=== PATIENT | female | born 1965 | race Caucasian/White ===

== ENCOUNTER → 2016-11-19 | Outpatient (CLI) | payer BC ==
--- NOTE | 2016-11-21 09:38 | MM ---
Reason for exam: screening (asymptomatic). Last mammogram was performed 1 year and 2 months ago. History: Patient is postmenopausal, has history of breast cancer at age 43, and had previous chest radiation therapy at age 43. Malignant right breast needle localzation of the right breast, May 10, 2009. Malignant right mammotome panel of the right breast, April 24, 2009. Chemotherapy, 2009. Radiation therapy of the right breast, 2009. Took hormonal contraceptives for 10 years. Taking tamoxifen beginning at age 44. Physical Findings: A clinical breast exam by your physician is recommended on an annual basis and results should be correlated with mammographic findings. MG 3D Screening Mammo W/Cad Bilateral CC and MLO view(s) were taken. Prior study comparison: September 28, 2015, bilateral MG 3d diag mammo w/cad [facility]. September 22, 2014, bilateral MG diagnostic mammo w CAD [facility]. The breast tissue is heterogeneously dense. This may lower the sensitivity of mammography. Stable post surgical and post therapy changes in the right breast with scar. Asymmetric density subareolar right breast does not completely disperse on tomosynthesis images but has no clear correlate on MLO view. ASSESSMENT: Incomplete: need additional imaging evaluation, BI-RAD 0 RECOMMENDATION: Special view mammogram of the right breast. If lesion persists on supplemental views, image directed ultrasound is recommended. [facility] will attempt to contact patient to return for supplemental views and ultrasound if indicated.
== END | disposition home or self-care (01) ==
LOC: RADMAMWWP 12:22
PROVIDERS: ATTEND Surgery
DX: Z12.31 Encounter for screening mammogram for malignant neoplasm of breast (principal)
CPT/HCPCS: 77063; G0202

== ENCOUNTER → 2016-11-27 | Outpatient (CLI) | payer BC ==
--- NOTE | 2016-11-27 09:40 | MM ---
Reason for exam: additional evaluation requested from abnormal screening. Last mammogram was performed less than 1 month ago. History: Patient is postmenopausal, has history of breast cancer at age 43, and had previous chest radiation therapy at age 43. Malignant right breast needle localzation of the right breast, May 10, 2009. Malignant right mammotome panel of the right breast, April 24, 2009. Chemotherapy, 2009. Radiation therapy of the right breast, 2009. Took hormonal contraceptives for 10 years. Took tamoxifen for 5 years beginning at age 44. Physical Findings: Nurse did not find any significant physical abnormalities on exam. MG 3D Work Up W/Cad RT LM and CC view(s) were taken of the right breast. Prior study comparison: November 19, 2016, bilateral MG 3d screening mammo w/cad. September 28, 2015, bilateral MG 3d diag mammo w/cad [facility]. The breast tissue is heterogeneously dense. This may lower the sensitivity of mammography. No distinct lesion persists on additional images. These results were verbally communicated with the patient and result sheet given to the patient on 11/27/16. ASSESSMENT: Benign, BI-RAD 2 RECOMMENDATION: Follow-up diagnostic mammogram of both breasts in 1 year.
== END | disposition home or self-care (01) ==
LOC: RADMAMWWP 08:47
PROVIDERS: ATTEND Surgery
DX: R92.8 Other abnormal and inconclusive findings on diagnostic imaging of breast (principal)
CPT/HCPCS: G0206; G0279

== ENCOUNTER → 2019-03-15 | Outpatient (CLI) | payer BC ==
--- NOTE | 2019-03-15 09:45 | MM ---
Reason for exam: additional evaluation requested from prior study. Last mammogram was performed 1 year and 2 months ago. History: Patient is postmenopausal, has history of breast cancer at age 43, and had previous chest radiation therapy at age 43. Malignant right breast needle localzation of the right breast, May 10, 2009. Malignant right mammotome panel of the right breast, April 24, 2009. Chemotherapy, 2009. Radiation therapy of the right breast, 2009. Took hormonal contraceptives for 10 years. Took tamoxifen for 5 years beginning at age 44. Physical Findings: Nurse did not find any significant physical abnormalities on exam. MG 3D Diag Mammo W/Cad [facility] Bilateral CC and MLO view(s) were taken. Prior study comparison: January 22, 2018, bilateral MG 3d diag mammo w/cad [facility]. November 27, 2016, right breast MG 3d work up w/cad RT. The breast tissue is heterogeneously dense. This may lower the sensitivity of mammography. No suspicious abnormality. Post therapy change on the right. No significant new findings when compared with previous films. These results were verbally communicated with the patient and result sheet given to the patient on 03/15/19. ASSESSMENT: Benign, BI-RAD 2 RECOMMENDATION: Routine screening mammogram of both breasts in 1 year.
== END | disposition home or self-care (01) ==
LOC: RADMAMWWP 08:22
PROVIDERS: ATTEND Family Medicine
DX: Z08 Encounter for follow-up examination after completed treatment for malignant neoplasm (principal); Z85.3 Personal history of malignant neoplasm of breast
CPT/HCPCS: 77062; 77066

== ENCOUNTER → 2020-04-13 | Outpatient (CLI) | payer BC ==
--- NOTE | 2020-04-14 13:57 | MM ---
Reason for exam: screening (asymptomatic). Last mammogram was performed 1 year and 1 month ago. History: Patient is postmenopausal, has history of breast cancer at age 43, and had previous chest radiation therapy at age 43. Malignant right breast needle localzation of the right breast, May 10, 2009. Malignant right mammotome panel of the right breast, April 24, 2009. Chemotherapy, 2009. Radiation therapy of the right breast, 2009. Took hormonal contraceptives for 10 years. Took tamoxifen for 5 years beginning at age 44. Physical Findings: A clinical breast exam by your physician is recommended on an annual basis and results should be correlated with mammographic findings. MG 3D Screening Mammo W/Cad Bilateral CC and MLO view(s) were taken. Prior study comparison: March 15, 2019, bilateral MG 3d diag mammo w/cad [facility]. January 22, 2018, bilateral MG 3d diag mammo w/cad [facility]. The breast tissue is heterogeneously dense. This may lower the sensitivity of mammography. Stable post operative changes right breast. No significant changes when compared with prior studies. ASSESSMENT: Benign, BI-RAD 2 RECOMMENDATION: Routine screening mammogram of both breasts in 1 year.
== END | disposition home or self-care (01) ==
LOC: RADMAMWWP 14:23
PROVIDERS: ATTEND Obstetrics & Gynecology
DX: Z12.31 Encounter for screening mammogram for malignant neoplasm of breast (principal); Z85.3 Personal history of malignant neoplasm of breast
CPT/HCPCS: 77063; 77067

== ENCOUNTER → 2021-10-08 | Outpatient (CLI) | payer BC ==
--- NOTE | 2021-10-09 08:28 | MM ---
Reason for Exam: Screening (asymptomatic). Last mammogram was performed 1 year(s) and 6 month(s) ago. Patient History: Menarche at age 14. First Full-Term at age 27. Postmenopausal. Breast cancer, age 43. Previous chest radiation therapy at age 43. Patient used Hormonal Contraceptives for 10 years. Tamoxifen for 5 years from age 44 until age 49. 05/10/2009, Malignant Excisional Biopsy on the right side. 04/24/2009, Malignant Core Biopsy on the right side. 2009, Radiation Therapy on the right side. 2009, Chemotherapy. 2009, Radiation Therapy on the right side. Prior Study Comparison: 01/22/2018 Bilateral Diagnostic Mammogram, [facility]. 03/15/2019 Bilateral Diagnostic Mammogram, [facility]. 04/13/2020 Bilateral Screening Mammogram, [facility]. Tissue Density: The breast tissue is heterogeneously dense. This may lower the sensitivity of mammography. Findings: Analyzed By CAD. Posttreatment changes to the right breast. Left breast intramammary lymph node. There is no suspicious group of microcalcifications or new suspicious mass in either breast. Overall Assessment: Benign, BI-RAD 2 Management: Screening Mammogram of both breasts in 1 year. A clinical breast exam by your physician is recommended on an annual basis and results should be correlated with mammographic findings. Electronically signed and approved by: Andrez Gay DO
== END | disposition home or self-care (01) ==
LOC: RADMAMWWP 12:39
PROVIDERS: ATTEND Family Medicine
DX: Z12.31 Encounter for screening mammogram for malignant neoplasm of breast (principal); Z78.0 Asymptomatic menopausal state
CPT/HCPCS: 77063; 77067

== ENCOUNTER → 2022-10-22 | Outpatient (CLI) | payer BC ==
--- NOTE | 2022-10-22 09:02 | MM ---
Reason for Exam: Clinical finding. Last screening mammogram was performed 12 month(s) ago. Indicated Problems: Lump or thickening of the right side for 2 Week(s). Patient History: Menarche at age 14. First Full-Term at age 27. Postmenopausal. Patient has history of breast feeding. Breast cancer, right, age 43. Previous chest radiation therapy at age 43. Patient used Hormonal Contraceptives for 10 years. Tamoxifen for 5 years from age 44 until age 49. 05/10/2009, Malignant Excisional Biopsy on the right side. 04/24/2009, Malignant Core Biopsy on the right side. 2009, Radiation Therapy on the right side. 2009, Chemotherapy. 2009, Radiation Therapy on the right side. Mother had ovarian cancer under age 50. Prior Study Comparison: 02/12/2010 Bilateral Diagnostic Mammogram, [facility]. 09/22/2014 Bilateral Diagnostic Mammogram, [facility]. 09/28/2015 Bilateral Diagnostic Mammogram, [facility]. 11/19/2016 Bilateral Screening Mammogram, [facility]. 11/27/2016 Right Diagnostic Mammogram, [facility]. 01/22/2018 Bilateral Diagnostic Mammogram, [facility]. 03/15/2019 Bilateral Diagnostic Mammogram, [facility]. 04/13/2020 Bilateral Screening Mammogram, [facility]. 10/08/2021 Bilateral MG 3D screening mammo w/cad, [facility]. Tissue Density: The breast tissue is heterogeneously dense. This may lower the sensitivity of mammography. Findings: Analyzed By CAD. No new suspicious mass within either breast. No suspicious group of microcalcifications within either breast. Posttreatment changes of the right breast redemonstrated. Left breast intramammary lymph node redemonstrated. Benign calcifications within the right breast. Overall Assessment: Incomplete: need additional imaging evaluation, BI-RAD 0 Management: Diagnostic Breast Ultrasound of the right breast. A clinical breast exam by your physician is recommended on an annual basis and results should be correlated with mammographic findings. This exam should not preclude additional follow-up of suspicious palpable abnormalities. Results were given to the patient verbally at the time of exam. Electronically signed and approved by: Shukri Montenegro D.O.
--- NOTE | 2022-10-22 09:28 | USB ---
Reason for Exam: Clinical finding. Patient History: Menarche at age 14. First Full-Term at age 27. Postmenopausal. Patient has history of breast feeding. Breast cancer, right, age 43. Previous chest radiation therapy at age 43. Patient used Hormonal Contraceptives for 10 years. Tamoxifen for 5 years from age 44 until age 49. 05/10/2009, Malignant Excisional Biopsy on the right side. 04/24/2009, Malignant Core Biopsy on the right side. 2009, Radiation Therapy on the right side. 2009, Chemotherapy. 2009, Radiation Therapy on the right side. Mother had ovarian cancer under age 50. Technique: Method: Targeted. Prior Study Comparison: 03/15/2019 Bilateral Diagnostic Mammogram, [facility]. 04/13/2020 Bilateral Screening Mammogram, [facility]. 10/08/2021 Bilateral MG 3D screening mammo w/cad, [facility]. Findings: The medial section of the breast of the right breast, the axilla of the right breast and the retroareolar of the right breast were scanned. Targeted ultrasound of the right breast from 12-6 o'clock with additional evaluation of the nipple and axial toe was performed. No solid or cystic lesion is identified.Targeted ultrasound of the right breast from 12-6 o'clock with additional evaluation of the nipple and axillary tail was performed. No solid or cystic lesion is identified. Overall Assessment: Negative, BI-RAD 1 Management: Screening Mammogram of both breasts in 1 year. A clinical breast exam by your physician is recommended on an annual basis and results should be correlated with mammographic findings. This exam should not preclude additional follow-up of suspicious palpable abnormalities. Results were given to the patient verbally at the time of exam. Electronically signed and approved by: Shukri Montenegro D.O.
== END | disposition home or self-care (01) ==
LOC: RADMAMWWP 08:21
PROVIDERS: ATTEND Student in an Organized Health Care Education/Training Program
DX: R92.8 Other abnormal and inconclusive findings on diagnostic imaging of breast (principal); Z85.3 Personal history of malignant neoplasm of breast; Z78.0 Asymptomatic menopausal state
CPT/HCPCS: 77062; 77066

== ENCOUNTER → 2023-11-04 | Outpatient (CLI) | payer BC, OTHER ==
--- NOTE | 2023-11-12 07:43 | MM ---
Reason for Exam: Hx of breast cancer, conservation therapy. Last screening mammogram was performed 12 month(s) ago. Patient History: Menarche at age 14. First Full-Term at age 27. Postmenopausal. Patient has history of breast feeding. Breast cancer, right, age 43. Previous chest radiation therapy at age 43. Patient used Hormonal Contraceptives for 10 years. Tamoxifen for 5 years from age 44 until age 49. 05/10/2009, Malignant Excisional Biopsy on the right side. 04/24/2009, Malignant Core Biopsy on the right side. 2009, Radiation Therapy on the right side. 2009, Chemotherapy. 2009, Radiation Therapy on the right side. Mother had ovarian cancer under age 50. Prior Study Comparison: 11/19/2016 Bilateral Screening Mammogram, [facility]. 11/27/2016 Right Diagnostic Mammogram, [facility]. 01/22/2018 Bilateral Diagnostic Mammogram, [facility]. 03/15/2019 Bilateral Diagnostic Mammogram, [facility]. 04/13/2020 Bilateral Screening Mammogram, [facility]. 10/08/2021 Bilateral MG 3D screening mammo w/cad, [facility]. 10/22/2022 Bilateral MG 3D diag mammo w/cad Z[facility], [facility]. Tissue Density: There are scattered areas of fibroglandular density. Findings: Analyzed By CAD. Right breast surgical clips. Right breast: There is no suspicious group of microcalcifications or new suspicious mass. Benign-appearing calcifications right breast. Left breast: There is no suspicious group of microcalcifications or new suspicious mass. Overall Assessment: Benign, BI-RAD 2 Management: Screening Mammogram of both breasts in [address] [facility] will attempt to contact patient to return for supplemental views and ultrasound if indicated. Patient should continue monthly self-breast exams. A clinical breast exam by your physician is recommended on an annual basis. This exam should not preclude additional follow-up of suspicious palpable abnormalities. Note on Sveta scores and lifetime risk: 1. A Sveta score greater than 3% is considered moderate risk. If this is the case, consider specialist referral to assess eligibility for a risk reducing agent. 2. If overall lifetime risk for the development of breast cancer is 20% or higher, the patient may qualify for future screening with alternating mammogram and breast MRI. Electronically signed and approved by: Richard Andrade M.D. Radiologis
== END | disposition home or self-care (01) ==
LOC: RADMAMWWP 09:07
PROVIDERS: ATTEND Obstetrics & Gynecology
DX: Z12.31 Encounter for screening mammogram for malignant neoplasm of breast
CPT/HCPCS: 77063; 77067